=== PATIENT | female | born 1970 | race Caucasian/White ===

== ENCOUNTER 2016-12-07 20:59 | Emergency (ER) | payer BC ==
--- NOTE | 2016-12-07 21:35 | UC ---
Lower Extremity/Ankle HPI - History of Current Complaint Stated Complaint: LEFT FOOT INJURY Time Seen by Provider: 12/07/16 21:28 Hx Obtained From: Patient Hx Last Menstrual Period: 3 weeks ago ?: No Onset/Duration: Sudden Onset - dropped [employer] computer battery supply on the left foot, Lasting Hours - 2, Still Present Severity Initially: Moderate Severity Currently: Moderate Aggravating Factor(s): Standing, Ambulation Alleviating Factor(s): Rest, Elevation, Ice Able to Bear Weight: Yes - Risk Factors Gout Risk Factors: Age Over 40 DVT Risk Factors: Negative Septic Arthritis Risk Factor: Negative - Allergies/Home Medications Allergies/Adverse Reactions: Allergies Allergy/AdvReac Type Severity Reaction Status Date / Time Gluten Meal Allergy See Comment Verified 12/07/16 21:21 Seasonal Allergies Allergy Intermediate Congestion Uncoded 12/07/16 21:21 Home Medications: Home Medications Gabapentin CAP(*) [Neurontin 300 CAP(*)] 600 mg PO TID PRN 12/07/16 [History Confirmed 12/07/16] Levonorgestrel & Eth Estradiol [Madyson-28] 1 tab PO DAILY 12/07/16 [History Confirmed 12/07/16] Omeprazole CAP* [Prilosec CAP* 20 MG] 20 mg PO DAILY 12/07/16 [History Confirmed 12/07/16] Propranolol & Hydrochlorothiaz [Propranolol/Hydrochloroth] 0.5 tab PO DAILY 02/18 [History Confirmed 12/07/16] Vitamin B Complex TAB* [Complex B-100*] 1 tab PO DAILY 12/07/16 [History Confirmed 12/07/16] PMH/Surg Hx/FS Hx/Imm Hx Endocrine History Of: Denies: Diabetes, Thyroid Disease Cardiovascular History Of: Reports: Hypertension Denies: Cardiac Disorders Respiratory History Of: Denies: COPD, Asthma GI/ History Of: Denies: Ulcer - Surgical History Surgical History: None Surgery Procedure, Year, and Place: Adenoids removed at age 4, Ear tubes as a child - Family History Known Family History: Positive: Hypertension Negative: Cardiac Disease, Diabetes - Social History Occupation: Employed Full-time Lives: With Family Substance Use Type: None Smoking Status (MU): Never Smoked Tobacco Have You Smoked in the Last Year: No Review of Systems Respiratory: Cough - with allergies Musculoskeletal: Arthralgia - left foot All Other Systems Reviewed And Are Negative: Yes Physical Exam Triage Information Reviewed: Yes Appearance: Well-Appearing, No Pain Distress - sitting, Well-Nourished Vital Signs Reviewed: Yes Eyes: Positive: Conjunctiva Clear ENT: Positive: Pharynx normal, TMs normal Neck exam: Normal Respiratory Exam: Normal Cardiovascular Exam: Normal Musculoskeletal: Positive: ROM Limited @ - left foot, Other: - swelling with bruising over the dorsal mid foot with tenderness. Neurological Exam: Normal Psychological Exam: Normal Skin Exam: Normal Lower Extremity Course/Dx - Differential Dx/Diagnosis Differential Diagnosis/HQI/PQRI: Contusion, Fracture (Closed), Tendonitis Provider Diagnoses: Contusion foot Discharge - Discharge Plan Condition: Stable Disposition: HOME Patient Education Materials: Contusion in Adults (ED) Additional Instructions: Use the walker shoe for comfort
--- NOTE | 2016-12-07 21:55 | RAD ---
INDICATION: Left foot injury. TECHNIQUE: 3 views of the left foot were obtained. FINDINGS: Soft tissue swelling is noted dorsal to the tarsal and metatarsal bones. The bones are in normal alignment. No fracture is seen. There is mild osteoarthritic change in the first metatarsophalangeal joint and a calcaneal spur present. IMPRESSION: NO EVIDENCE FOR FRACTURE, IF THE PATIENT'S SYMPTOMS PERSIST RECOMMEND FOLLOW-UP IMAGING.
[2016-12-07 21:59] VITALS: BP 197/97
== END 2016-12-07 22:11 | disposition home or self-care (01) ==
LOC: UCCORT 20:59
DX: S90.32XA Contusion of left foot, initial encounter (principal); W20.8XXA Other cause of strike by thrown, projected or falling object, initial encounter; Y93.9 Activity, unspecified; Y92.9 Unspecified place or not applicable; I10 Essential (primary) hypertension
CPT/HCPCS: 99212; G0463

== ENCOUNTER 2018-11-16 15:16 | Inpatient (IN) | payer BC ==
[2018-11-16] MEDS ORDERED: Morphine INJ* 10 MG/ML 1 ML CARPUJECT IV ONE (16:18)
[2018-11-16] MEDS ORDERED: cefTRIAXone(*) 1 GM in NS 0.9% 50 ML* 50 ML IVPB ONE (16:19)
--- NOTE | 2018-11-16 16:19 | ED ---
Back Pain - HPI Summary HPI Summary: This pt is a 47 y/o female, accompanied by spouse, presenting to [facility] referred by Dr. Suarez after MRI today shows osteomyelitis. Pt reports she had laminectomy with microdiscectomy surgery on 08/27/18 done at [facility] ([place], [place]) by Dr. Henson. She states that for 2.5 weeks after surgery she felt great. Pt then began to experience pain in her gluteus area, described as a "tear feeling," and lower back pain. Pt notes she was placed on prednisone for 10 days with relief in mid September 2018 by her surgeon. She states that after she finished prednisone she continued to have pain. Her pain is aggravated when lying flat. Pt began to see Dr. Suarez, manager general, for her pain and had an MRI today. MRI today showed she had osteomyelitis and was told by Dr. Suarez to come to the ED. Denies fever, chills, abd pain, weakness, numbness, and tingling in LE. - History of Current Complaint Chief Complaint: EDBackInjuryPain Stated Complaint: BACK/JOINT PAIN Time Seen by Provider: 11/16/18 16:09 Hx Obtained From: Patient Hx Last Menstrual Period: 3 weeks ago Onset/Duration: Lasting Weeks, Still Present Onset/Duration: Started Weeks Ago, Still Present Timing: Lasting Weeks Back Pain Location: Is Discrete @ - gluteus Severity Currently: Severe Pain Intensity: 9 Pain Scale Used: 0-10 Numeric Aggravating Symptom(s): Other - lying flat Alleviating Symptom(s): Nothing Associated Signs And Symptoms: Negative: Fever, Abdominal Pain - Allergies/Home Medications Allergies/Adverse Reactions: Allergies Allergy/AdvReac Type Severity Reaction Status Date / Time amoxicillin [From Augmentin] Allergy skin thrush Verified 11/10/18 10:10 clavulanic acid Allergy skin thrush Verified 11/10/18 10:10 [From Augmentin] gluten Allergy See Comment Verified 11/10/18 10:10 codeine AdvReac Severe Nausea Verified 11/10/18 10:10 Seasonal Allergies Allergy Intermediate Congestion Uncoded 11/10/18 10:10 Home Medications: Home Medications tiZANidine TAB* [Zanaflex TAB*] 6 mg PO QID 11/16/18 [History Confirmed 11/16/18 ] PMH/Surg Hx/FS Hx/Imm Hx Endocrine/Hematology History: Denies: Hx Diabetes, Hx Thyroid Disease Cardiovascular History: Denies: Hx Hypertension - "WHITE COAT SYNDROME", Hx Pacemaker/ICD Respiratory History: Denies: Hx Asthma, Hx Chronic Obstructive Pulmonary Disease (COPD) GI History: Denies: Hx Ulcer History: Reports: Hx Kidney Stones Denies: Hx Renal Disease Musculoskeletal History: Reports: Hx Back Problems Sensory History: Denies: Hx Hearing Aid Psychiatric History: Denies: Hx Panic Disorder - Cancer History Cancer Type, 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 2018 LAMINECTOMY Infectious Disease History: No Infectious Disease History: Reports: Hx Shingles - 2010 Denies: Hx Hepatitis, Hx Human Immunodeficiency Virus (HIV), Traveled Outside the [place] in Last 30 Days - Family History Known Family History: Positive: Hypertension Negative: Cardiac Disease, Diabetes - Social History Alcohol Use: Occasionally Substance Use Type: Reports: None Smoking Status (MU): Never Smoked Tobacco Have You Smoked in the Last Year: No Review of Systems Negative: Fever, Chills Negative: Abdominal Pain Musculoskeletal: Other - POS: gluteus pain, lower back pain Negative: Weakness, Paresthesia, Numbness All Other Systems Reviewed And Are Negative: Yes Physical Exam - Summary Physical Exam Summary: Appearance: Well-appearing, Obese woman, no acute distress Skin: Warm, dry, no obvious rash Eyes: sclera anicteric, no conjunctival pallor ENT: mucous membranes moist, pharynx appears normal Neck: Supple, nontender Respiratory: Clear to auscultation, no signs of respiratory distress Cardiovascular: Normal S1, S2. No murmurs. Normal distal pulses in tibial and radial bilaterally. Abdomen: Soft, nontender, normal active bowel sounds present Musculoskeletal: Well healed surgical scar in lower back. Good strength in lower extremities. About 4 or 5 beats of clonus on both ankles. Neurological: A&Ox3, awake and alert, mentation is normal, speech is fluent and appropriate Psychiatric: affect is normal, does not appear anxious or depressed Triage Information Reviewed: Yes Vital Signs On Initial Exam: Initial Vitals Temp Pulse Resp BP Pulse Ox 97.7 F 119 20 159/99 98 11/16/18 15:19 11/16/18 15:19 11/16/18 15:19 11/16/18 15:19 11/16/18 15:19 Vital Signs Reviewed: Yes Diagnostics - Vital Signs Vital Signs Temp Pulse Resp BP Pulse Ox 11/16/18 15:19 97.7 F 119 20 159/99 98 - Laboratory Result Diagrams: 11/16/18 16:33 11/16/18 16:33 Lab Statement: Any lab studies that have been ordered have been reviewed, and results considered in the medical decision making process. - Additional Comments Diagnostic Additional Comments: Outpatient Lumbar Spine MRI, as read by radiologist IMPRESSION: 1. Status post laminectomy 2. There is fluid within the intervertebral disc space with enhancement and irregularity of the endplates at L4-L5, consistent with osteomyelitis/discitis. There is an associated 1.3 CM paravertebral abscess along the superior endplate of L5. There is epidural enhancement suggestive of phlegmon without loculated fluid collection to suggest epidural abscess. Dr. Allen has reviewed this report. Re-Evaluation - Re-Evaluation First Eval Re-Evaluation Time: 18:19 Comment: Discussed no available beds at [facility]. Pt is still in pain. Back Pain Course/Dx - Course Assessment/Plan: Pt is a 47 y/o female who presents to the ED referred by Dr. Suarez after MRI today showing osteomyelitis. Pt reports she had laminectomy with microdiscectomy surgery on 08/27/18 done at [facility] ([place], [place]) by Dr. Henson. She states that for 2.5 weeks after surgery she felt great. Pt then began to experience pain in her gluteus area, described as a "tear feeling," and lower back pain. Pt had MRI today ordered by Dr. Suarez, manager general. In the ED course the pt was given IV fluids, morphine, morphine vial, rocephin, vancomycin, oxycodone. Discussed with Dr. Jenkins, neurosurgeon , who recommends transfer. Contacted [facility] to speak with neurosurgeon covering for Dr. Henson. Dr. Howard, neurosurgeon, returned the call and reports they don 't have beds available but would be happy to accept. Transfer center was contacted to make them aware of situation. Discussed pt care with Dr. Parikh, hospitalist, who will come see the pt in the ED. - Diagnoses Provider Diagnoses: Discitis, Spinal abscess, Osteomyelitis of lumbar spine - Provider Notifications Discussed Care Of Patient With: Charles Jenkins Time Discussed With Above Provider: 16:21 Instructed by Provider To: Other - Discussed with Dr. Jenkins, neurosurgeon, who recommends transfer. [16:43] Contacted [facility] to speak with neurosurgeon covering for Dr. Henson. [17:36] Dr. Howard, neurosurgeon, reports they don't have beds available but would be happy to accept. [18:00] Transfer center was contacted. [18:12] Discussed pt care with Dr. Parikh, hospitalist, who will come see the pt in the ED. Discharge - Sign-Out/Discharge Documenting (check all that apply): Patient Departure Patient Received Moderate/Deep Sedation with Procedure: No - Discharge Plan Condition: Stable Disposition: ADMITTED TO [facility] Referrals: Delisa Hernandez MD [Primary Care Provider] - - Billing Disposition and Condition Condition: STABLE Disposition: Admitted to [facility] - Attestation Statements Document Initiated by Ailyn: Yes Documenting Galeibe: Mague Watson Provider For Whom Ailyn is Documenting (Include Credential): Mayur Allen MD Scribe Attestation: Mague Larsen, scribed for Mayur Allen MD on 11/16/18 at 1957. Scribe Documentation Reviewed: Yes Provider Attestation: The documentation as recorded by the Mague stroud accurately reflects the service I personally performed and the decisions made by me, Mayur Allen MD Status of Scribe Document: Viewed
[2018-11-16] MEDS ORDERED: Vancomycin(*) 1,000 MG in NS 0.9% 250 ML* 250 ML IVPB ONE (16:20)
[2018-11-16] MEDS ORDERED: Morphine VIAL* 10 MG/ML 1 ML VIAL ONE ×2 (16:35→21:02)
[2018-11-16] MEDS ORDERED: Vancomycin(*) 2,000 MG in NS 0.9% 500 ML* 500 ML IVPB ONE (16:38)
[2018-11-16 16:50] LABS: ABS Basophils 0 10^3/ul (0-0.2); ABS Eosinophils 0.2 10^3/ul (0-0.6); ABS Monocytes 0.6 10^3/ul (0-0.8); ABS Neutrophils 7.5 10^3/ul (1.5-7.7); ABS Nucleated RBC 0 10^3/ul; Eosinophil % 1.6 %; Hematocrit 30 % (35-47); Hemoglobin 9.7 g/dl (12.0-16.0); Lymphocyte % 19.2 %; Mean Corpuscular HGB Conc 33 g/dl (31-36); Mean Corpuscular Hemoglobin 26 pg (27-31); Mean Corpuscular Volume 79 fL (80-97); Mean Platelet Volume 6.9 fL (7.4-10.4); Nucleated Red Blood Cells % 0; Platelet Count 581 10^3/ul (150-450); Red Cell Distribution Width 16 % (10.5-15); White Blood Count 10.2 10^3/ul (3.5-10.8)
[2018-11-16] MEDS: NS 0.9% 1000 ML** 2,000 ML IV ONE ×2 (16:51→16:52)
[2018-11-16] MEDS: Morphine VIAL* 10 MG/ML 1 ML VIAL IV ONE ×2 (16:51→21:05)
[2018-11-16 17:01] LABS: Albumin/Globulin Ratio 1.1 (1-3); BUN/Creatinine Ratio 16.1 (8-20); C Reactive Protein 43.7 mg/L (<8.01); Calcium 9.2 mg/dL (8.6-10.3); EGFR African American 78.2 (>60); EGFR Non-African American 64.6 (>60); Globulin 3.7 g/dL (2-4); Potassium 4.3 mmol/L (3.5-5.0); Total Bilirubin 0.3 mg/dL (0.2-1.0); Total Protein 7.7 g/dL (6.4-8.9)
[2018-11-16 18:02] LABS: Urine Appearance Cloudy; Urine Bacteria Absent (Absent); Urine Bilirubin Negative (Negative); Urine Blood Negative (Negative); Urine Color Yellow; Urine Glucose Negative (Negative); Urine Ketones Negative (Negative); Urine Nitrite Negative (Negative); Urine Protein 1+(30 mg/dL) (Negative); Urine Red Blood Cell 2+(6-10/hpf) (Absent); Urine Squamous Epithelial Cell Present (Absent); Urine Urobilinogen Negative (Negative); Urine White Blood Cell Trace(0-5/hpf) (Absent)
[2018-11-16] MEDS ORDERED: oxyCODONE TAB* 5 MG TAB PO ONE (18:26)
[2018-11-16] MEDS ORDERED: Acetaminophen TAB* 325 MG PO PRN (19:48)
[2018-11-16] MEDS ORDERED: ALPRAZolam TAB* 0.25 MG PO PRN (19:58)
[2018-11-16] MEDS ORDERED: Vancomycin per Pharmacy* NOTE FOLLOW UP SCH (21:00)
--- NOTE | 2018-11-16 21:54 | PN ---
Hospitalist Progress Note Date of Service: 11/16/18 Patient seen and evaluated with CLARIBEL Cooper. Patient here with back pain. No rectal or urinary incontience, no lower extremity weakness, no saddle anesthesia. On exam: able to raise both legs up without issues. tenderness at the lower back region. Epidural abscess/osteomyelitis post back surgery in August 2018: discussed with patient that Dr. Jenkins has refused to participate in the care, and recommended transfer. Dr. Bullard accepted the patient at [facility] in [place], [place]; however no bed available. Currently patient is refusing transfer, will need the on-call neurosurgeon tomorrow to consult, if he also refuses- patient will have to be transferred. Discussed with patient that refusing to be transfer and have neurosurgery evaluation- she risks not getting the standard of care- possible drainage of abscess/surgical debridement if needed- can lead to weakness of lower extremities- functional disability, paralysis, worsening of infection, leading to blood infection, probable shock and .
[2018-11-16] MEDS: Morphine VIAL* 4 MG/ML VIAL (1 ml vial) IV PRN (23:37)
[2018-11-16] MEDS: tiZANidine TAB* 2 MG PO SCH (23:44)
[2018-11-16] MEDS: Gabapentin CAP(*) 300 MG PO SCH (23:44)
[2018-11-16] MEDS: Heparin VIAL(*) 5000 UNITS/ML VIAL (FIVE THOUSAND) SUBCUT SCH (23:45)
--- NOTE | 2018-11-16 23:48 | HP ---
HISTORY AND PHYSICAL: DATE OF ADMISSION: 11/16/18 PROVIDER: Leah Isaac NP. ATTENDING PHYSICIAN WHILE IN THE HOSPITAL: Dr. Zapien * (dictated by Leah Isaac NP). PRIMARY CARE PROVIDER: Dr. Hernandez. CHIEF COMPLAINT: Lower back pain. HISTORY OF PRESENT ILLNESS: Ms. Pugh is a 47-year-old female with past medical history significant for lower back pain, status post back surgery on , at which time, she reports she had a laminectomy with a microdiscectomy at [facility] by Dr. Henson. She reports that 2-1/2 weeks post surgery, she felt great, she had minimal pain. She denied any complaints. Denied any radiation. Nerve pain had improved that was radiating down her legs. She reports that she started PT in approximately 2 to 3 days. After starting physical therapy, she felt like she had a torn muscle in her back and developed muscle spasms. Since then the patient has had difficulty with muscle spasms and lower back pain that radiates to bilateral hips. She reports that the muscle spasms progressed to the point she followed up with Dr. Henson, who prescribed her Flexeril and hydrocodone for the pain. She then did follow up with Dr. Suarez from pain management, who changed her medication to Zanaflex. She does report that the Zanaflex has been helping her pain. Her last follow up with Dr. Henson in [place] was 10/07/17 and at that time, he prescribed her hydrocodone and Flexeril. The patient reports that the pain has progressively become worse. She followed up with her primary care provider, who ordered an MRI of her back. The MRI was scheduled for today. After the MRI , she was contacted to return to the emergency room due to she was told "a bone infection and abscess" on her spine, so she presented to the emergency room for further evaluation. While in the emergency room, she was seen and evaluated. She had routine lab works drawn. She was started on IV antibiotics with vanco and ceftriaxone. Dr. Jenkins from Neurosurgery was contacted and declined consultation in this patient's case and recommended that the patient be transferred back to [facility] where she had the procedure done. The patient declined transfer to [facility] stating "this facility is more convenient for her" as she was in [place]. [facility] was contacted for transfer and the patient was accepted by Dr. Henson's colleague, Dr. Howard from Neurosurgery, who reports that they have no beds available to accept the patient at this time. The patient has no neuro deficits. She is able to move all 4 extremities with 5/5 strength. Sensation is intact to bilateral lower extremities. Tendon reflexes are intact. She does report feeling warm and chills x30 days. She does report some intermittent nausea. She denies any chest pain, cough, hemoptysis, or shortness of breath. Denies any abdominal pain or diarrhea. She denies any urinary incontinence or bowel incontinence. She denies any saddle anesthesia. Due to the findings of osteomyelitis and discitis on her MRI, we were asked to see and evaluate her for admission. PAST MEDICAL HISTORY: Significant for: 1. Lower back pain. 2. Essential hypertension. 3. Kidney stones. 4. Esophageal reflux. PAST SURGICAL HISTORY: 1. Laminectomy with microdiscectomy on 08/27/18. 2. D and C. 3. Polyp removal in 2014. HOME MEDICATIONS: 1. Vitamin B complex 1 tab p.o. daily. 2. Estradiol 1 tablet p.o. daily. 3. Gabapentin 600 mg p.o. b.i.d. 4. Vitamin D 1000 units p.o. daily. 5. Alprazolam 0.25 mg p.o. 4 times a day p.r.n. 6. Tramadol 50 mg 4 times a day p.r.n. 7. Zanaflex 6 mg p.o. 4 times a day. 8. Propranolol/hydrochlorothiazide 0.5 tablet p.o. daily, 80/25. 9. Omeprazole 20 mg p.o. daily. 10. Ibuprofen 600 mg 4 times a day as needed for pain. FAMILY HISTORY: No reported history of coronary artery disease or diabetes. Father with history of basal cell carcinoma. Mother with history of breast cancer. SOCIAL HISTORY: Denies any tobacco. Does report social alcohol use. Denies any illicit drug use. She is employed at [employer]. Surrogate decision maker in the event she is unable to make her own decisions is her partner, , Andrei. She is a full code. REVIEW OF SYSTEMS: There has been no documented fever or unintended weight loss. She does report chills and feeling warm x30 days at home. She denies any chest pain or edema. Denies any cough, hemoptysis, or shortness of breath. She does report nausea on and off. Denies any diarrhea or abdominal pain. Denies any vomiting. Denies any hematuria, dysuria, focal weakness, or sensory loss. Denies any visual complaints or dysphagia. She does report bilateral hip joint aches. Denies any rashes, lesions, open sores, psychosis, or anxiety. PHYSICAL EXAMINATION GENERAL: At this time, Ms. Pugh is a 47-year-old female. She appears comfortable, resting on the stretcher in the emergency room. She is alert and oriented x3. HEENT: Head is atraumatic, normocephalic. Eyes: EOMs are intact. Sclerae anicteric and not pale. Oral mucosa appeared to be moist. NECK: Supple. LUNGS: Clear to auscultation bilaterally. No wheezes, rales, or rhonchi. CARDIAC: S1, S2. Regular rate and rhythm. No murmurs, rubs, or gallops. ABDOMEN: Soft and nontender. Bowel sounds are present x4. EXTREMITIES: Pedal pulses are +2 bilaterally. Sensation is intact to bilateral lower extremities. Patellar reflexes are intact. : She denies any bowel or urinary incontinence. No saddle anesthesia. NEUROLOGIC: She is awake, alert, and oriented x3. Speech is clear. Hand snow shoveler are equal. Thought process is intact. No gross focal deficits are noted. She denies any numbness or tingling to bilateral feet or lower extremities. She has full range of motion of bilateral lower extremities. She does exhibit some pain with straight leg lift with bilateral lower legs. She does have SI joint tenderness with palpation to bilateral SI joints and bilateral hip joint pain with palpation. C-spine, T-spine, and lumbar spine without tenderness to palpation. She has a well-healed surgical scar noted to her lumbar region. SKIN: Intact. ASSESSMENT AND PLAN: Ms. Pugh is a 47-year-old female with past medical history significant for hypertension, lower back pain, status post laminectomy with microdiscectomy on 08/27/[address] Henson at [facility], who presented to the emergency room with acute findings on MRI of osteomyelitis and possible abscess. The patient will be admitted inpatient for: 1. Lumbar osteomyelitis, discitis. She will be continued on vancomycin and ceftriaxone. I will consult Infectious Disease. The patient was notified that Dr. Jenkins from Neurosurgery has declined participation in her care. The patient was recommended to be transferred to [facility] where she had her procedure done. The patient declined transfer to [facility]. She was advised of the risk of not being transferred and wishes to stay here at [facility] for her treatment. I would recommend that the case be discussed with Dr. Bustos in the morning. The patient was advised that if neurosurgery again decline participation in her care that she again would need to be transferred to [facility] for further management of her osteomyelitis of the lumbar spine. I will add on CRP and ESR to her lab work. 2. Hypertension. She will continue on propranolol/hydrochlorothiazide as previously prescribed. 3. Acid reflux. Continue on omeprazole as previously prescribed. 4. Fluids, electrolytes, nutrition. She can have a regular diet. 5. Code status. She is a full code. 6. Deep vein thrombosis prophylaxis. I will place her on heparin subcu. DISPOSITION: She will be placed inpatient. TIME SPENT: Time spent on this admission approximately 60 minutes; greater than half that time was spent at the bedside, reviewing events leading thus far to her hospitalization, performing my physical exam; the rest of the time was spent implementing my my plan of care and reviewing my plan of care. I have discussed this with my attending, Dr. Zapien, who is in agreement with my plan. LEAH ISAAC, CLARIBEL [id number]/[facility] #: [id number] LISA
[2018-11-17] MEDS: Morphine VIAL* 4 MG/ML VIAL (1 ml vial) IV PRN ×8 (01:30→22:58)
[2018-11-17] MEDS: Vancomycin(*) 1,250 MG in NS 0.9% 250 ML* 250 ML IVPB SCH ×3 (01:52→21:54)
[2018-11-17] MEDS: Heparin VIAL(*) 5000 UNITS/ML VIAL (FIVE THOUSAND) SUBCUT SCH ×3 (06:07→21:55)
[2018-11-17 07:31] LABS: ABS Basophils 0 10^3/ul (0-0.2); ABS Eosinophils 0.3 10^3/ul (0-0.6); ABS Lymphocytes 1.5 10^3/ul (1.0-4.8); ABS Monocytes 0.6 10^3/ul (0-0.8); ABS Neutrophils 5.7 10^3/ul (1.5-7.7); ABS Nucleated RBC 0 10^3/ul; Eosinophil % 3.2 %; Hematocrit 27 % (35-47); Hemoglobin 8.8 g/dl (12.0-16.0); Lymphocyte % 18.5 %; Mean Corpuscular HGB Conc 33 g/dl (31-36); Mean Corpuscular Hemoglobin 26 pg (27-31); Mean Corpuscular Volume 79 fL (80-97); Mean Platelet Volume 6.8 fL (7.4-10.4); Nucleated Red Blood Cells % 0; Platelet Count 474 10^3/ul (150-450); Red Blood Count 3.43 10^6/ul (4.00-5.40); Red Cell Distribution Width 16 % (10.5-15); White Blood Count 8.1 10^3/ul (3.5-10.8)
[2018-11-17 08:00] LABS: BUN/Creatinine Ratio 14.5 (8-20); Calcium 8.8 mg/dL (8.6-10.3); EGFR African American 98.7 (>60); EGFR Non-African American 81.6 (>60)
[2018-11-17] MEDS: Gabapentin CAP(*) 300 MG PO SCH ×2 (09:54→20:35)
[2018-11-17] MEDS: Hydrochlorothiazide TAB* 25 MG PO SCH (09:55)
[2018-11-17] MEDS: Pantoprazole TAB * 40 MG TAB PO SCH (09:56)
[2018-11-17] MEDS: tiZANidine TAB* 2 MG PO SCH ×4 (09:56→20:43)
[2018-11-17] MEDS: Vitamin B Complex TAB PO SCH (09:56)
[2018-11-17] MEDS: Propranolol TAB* 40 MG PO SCH (09:57)
[2018-11-17] MEDS: ETHINYL ESTRADIOL PO SCH (09:58)
[2018-11-17] MEDS: Cholecalciferol TAB* 1000 UNITS PO SCH (09:58)
[2018-11-17] MEDS: LEVONORGESTREL PO SCH (09:58)
--- NOTE | 2018-11-17 15:34 | CONS ---
CONSULTATION REPORT: DATE OF CONSULT: 11/17/18 REQUESTING PROVIDER: Leah Isaac NP. CONSULTING SERVICE: Infectious Disease. REASON FOR CONSULT: Vertebral osteo diskitis. IMPRESSION: 1. Few weeks of worsening low back pain, elevated C-reactive protein, and MRI of the lumbar spine that shows vertebral osteo diskitis at L4-L5, a 1.3 cm paravertebral abscess along the endplate of L5, epidural enhancement without abscess, suggestive of phlegmon. Her lower extremities are neurologically intact. 2. Status post decompressive laminectomy with microdiskectomy of the lumbar spine, 08/27/18. 3. Allergy to AUGMENTIN. RECOMMENDATIONS: Blood cultures were sent. I will talk to Interventional Radiology and see if there is anything that they can aspirate to improve the culture yield. Assuming not, the typical organisms are Staph and Strep and less commonly Gram negatives. She is on vancomycin and ceftriaxone, which I think is reasonable for now as we try to determine a long-term course for her, which will include 6 to 8 weeks of IV antibiotics. Follow her lower extremity neurologic exam closely. At this point, there is no indication for surgery. HISTORY OF PRESENT ILLNESS: This is a 47-year-old woman who had a lumbar laminectomy in August, did well for the first few weeks, and then started to develop low back and bilateral buttock pain. She had a course of prednisone with some improvement. Because of worsening symptoms, she eventually saw Dr. Suarez, who evaluated her. Her symptoms continued to get worse despite some physical therapy and other conservative measures. She had an MRI done yesterday with results as described above. She was directed to the ER. Here, her white count was 10, her platelet count was 581, her CRP 45. She is afebrile here. She has not had fevers at home that she knows of. Her appetite has been off and she has had chills without sweats. She has no prosthetic material present. She does not notice leg weakness and has been walking around at home, just has difficulty getting up from laying down due to pain. No trouble emptying her bladder or maintaining continence of stool. PAST MEDICAL HISTORY: 1. Obesity. 2. Hypertension. 3. Nephrolithiasis. 4. Esophageal reflux. 5. Status post laminectomy and microdiskectomy, lumbar spine on 08/27/18. 6. D and C. MEDICATIONS: 1. Tylenol. 2. Xanax as needed. 3. Cholecalciferol. 4. Gabapentin. 5. Heparin subcutaneous injection. 6. Hydrochlorothiazide. 7. Morphine. 8. Pantoprazole. 9. Ceftriaxone 1 g a day. 10. Tizanidine. 11. Vancomycin 1250 mg every 8 hours. ALLERGIES: 1. AUGMENTIN. 2. CODEINE. FAMILY HISTORY: No recurrent infections. SOCIAL HISTORY: She lives in [place], works for [employer]. Nonsmoker. No injections of drugs. REVIEW OF SYSTEMS: All negative, except as noted above to the 14-point review. PHYSICAL EXAM: Vital Signs: Temperature 37, heart rate 70, respiratory rate 16 , blood pressure 134/80, oxygen saturation 97% on room air. General: She is awake and not in distress. Neurologic: She is oriented x3. Follows all commands. Strength is 5/5 in the quadriceps, tibialis anterior, and gastrocnemius bilaterally. Sensation is intact to light touch in both legs. There is no lower extremity clonus. HEENT: There is no conjunctival hemorrhage. Oropharynx without lesions. Neck: Supple without mass. Heart: Regular rate and rhythm without murmurs, rubs, or gallops. Lungs: Clear to auscultation bilaterally. Abdomen: Soft, nontender, and nondistended. There are bowel sounds present. Skin: There are no rashes or splinter hemorrhages. Musculoskeletal: Her lumbar spine incision is healed. There is slight spine tenderness to palpation. There is bilateral buttock tenderness to palpation. There is no logroll sign in either hip. DIAGNOSTIC STUDIES/LAB DATA: Creatinine 0.7. White blood cell count 8, hemoglobin 8, MCV 79, and platelets 474. Please see impression and recommendations outlined above, which I have discussed with Ann Dow NP. Thanks for asking me to see Ms. Pugh in consultation. [id number]/[facility] #: [id number] LISA
[2018-11-17] MEDS: cefTRIAXone(*) 1 GM in NS 0.9% 50 ML* 50 ML IVPB SCH (16:40)
[2018-11-17] MEDS ORDERED: Vancomycin Trough Check NOTE FOLLOW UP ONE (17:30)
[2018-11-17] MEDS: Morphine VIAL* 10 MG/ML 1 ML VIAL IV PRN ×2 (19:12→20:34)
--- NOTE | 2018-11-17 19:12 | PN ---
Subjective Date of Service: 11/17/18 Interval History: Patient seen and examined. Complaint of low back pain, trouble ambulating. Denies fever or chills. No SOB or chest pain. Objective Active Medications: Acetaminophen (Tylenol Tab*) 650 mg PO Q4H PRN PRN Reason: FEVER/PAIN Alprazolam (Xanax Tab*) 0.25 mg PO QID PRN PRN Reason: ANXIETY Cholecalciferol (Vitamin D Tab*) 1,000 units PO DAILY [facility] Last Admin: 11/17/18 09:58 Dose: 1,000 units Gabapentin (Neurontin Cap(*)) 600 mg PO BID [facility] Last Admin: 11/17/18 09:54 Dose: 600 mg Heparin Sodium (Porcine) (Heparin Vial(*)) 5,000 units SUBCUT Q8HR [facility] Last Admin: 11/17/18 14:23 Dose: 5,000 units Hydrochlorothiazide (Hydrodiuril Tab*) 12.5 mg PO DAILY [facility] Last Admin: 11/17/18 09:55 Dose: 12.5 mg Ceftriaxone Sodium 1 gm/ (Sodium Chloride) 50 mls @ 200 mls/hr IVPB Q24H [facility] Last Admin: 11/17/18 16:40 Dose: 200 mls/hr Vancomycin HCl 1,250 mg/ (Sodium Chloride) 250 mls @ 83.333 mls/hr IVPB 0600, 1400,2200 [facility] Morphine Sulfate (Morphine Vial*) 4 mg IV Q1H PRN PRN Reason: PAIN Nft: Levonorgestrel- Ethin Estradiol [ Madyson-28 Tablet] 1 Tab 1 tab PO DAILY [facility] Last Admin: 11/17/18 09:58 Dose: Not Given Oxycodone/Acetaminophen (Percocet 5/325 Tab*) 1 tab PO Q4H PRN PRN Reason: Pain Pantoprazole Sodium (Protonix Tab*) 40 mg PO DAILY [facility] Last Admin: 11/17/18 09:56 Dose: 40 mg Pharmacy Consult (Vancomycin Per Pharmacy*) 1 note FOLLOW UP .VANC PER PHARMACY [facility] Pharmacy Profile Note (Vancomycin Trough Check) 1 note FOLLOW UP 0600 ONE Stop: 11/18/18 06:01 Propranolol HCl (Inderal Tab*) 40 mg PO DAILY [facility] Last Admin: 11/17/18 09:57 Dose: 40 mg Tizanidine HCl (Zanaflex Tab*) 6 mg PO QID [facility] Last Admin: 11/17/18 16:40 Dose: 6 mg Vitamin B Complex/Vitamin E (B Complex-50*) 1 tab PO DAILY [facility] Last Admin: 11/17/18 09:56 Dose: 1 tab Vital Signs - 8 hr 11/17/18 11/17/18 11/17/18 11:17 11:22 12:05 Temperature 99.0 F Pulse Rate 78 77 Respiratory 16 18 Rate Blood Pressure 134/80 (mmHg) O2 Sat by Pulse 96 97 Oximetry 11/17/18 11/17/18 11/17/18 14:23 15:42 16:38 Temperature 99.2 F Pulse Rate 80 Respiratory 18 18 18 Rate Blood Pressure 129/59 (mmHg) O2 Sat by Pulse 98 Oximetry Oxygen Devices in Use Now: None Appearance: alert, mild anxiety, tearful Eyes: No Scleral Icterus, PERRLA Ears/Nose/Mouth/Throat: NL Teeth, Lips, Gums, Mucous Membranes Moist Neck: NL Appearance and Movements; NL JVP, Trachea Midline Respiratory: Symmetrical Chest Expansion and Respiratory Effort, Clear to Auscultation Cardiovascular: NL Sounds; No Murmurs; No JVD, RRR Abdominal: NL Sounds; No Tenderness; No Distention Extremities: No Clubbing, Cyanosis Skin: No Rash or Ulcers, - - lumbar wound closed Neurological: Alert and Oriented x 3, NL Sensation, NL Gait Nutrition: Taking PO's Result Diagrams: 11/17/18 07:12 11/17/18 07:12 Microbiology and Other Data: Microbiology 11/16/18 16:59 Aerobic Blood Culture - Preliminary Blood Venous No Growth Day 1 11/16/18 16:33 Aerobic Blood Culture - Preliminary Blood Venous No Growth Day 1 Anaerobic Blood Culture - Preliminary No Growth Day 1 Assess/Plan/Problems-Billing Assessment: - Patient Problems (1) Lumbar discitis Code(s): M46.46 - DISCITIS, UNSPECIFIED, LUMBAR REGION SNOMED Code(s): 358523271 Comment: - NS declines to follow the patient as she had surgery at [place] - ID following, continue vancomycin and ceftriaxone, per Dr. Woodruff, no indication for surgery - May be able to go to IR for drainage of abscess and culture - Will need PICC line when blood cx negative (2) Hypertension Code(s): I10 - ESSENTIAL (PRIMARY) HYPERTENSION SNOMED Code(s): 33949045 Comment: - stable on HCTZ and propranolol (3) GERD (gastroesophageal reflux disease) Code(s): K21.9 - GASTRO-ESOPHAGEAL REFLUX DISEASE WITHOUT ESOPHAGITIS SNOMED Code(s): 407383605 Comment: - continue PPI (4) DVT prophylaxis Code(s): [id number] - SNOMED Code(s): 687948485 Comment: - HSQ (5) Full code status Code(s): Z78.9 - OTHER SPECIFIED HEALTH STATUS SNOMED Code(s): 784841239 Status and Disposition: Inpatient. Dispo TBD
[2018-11-17] MEDS: oxyCODONE/Acetamin 5/325 MG* TAB PO PRN (21:50)
[2018-11-18] MEDS: Morphine VIAL* 4 MG/ML VIAL (1 ml vial) IV PRN ×5 (02:14→23:16)
[2018-11-18] MEDS: oxyCODONE/Acetamin 5/325 MG* TAB PO PRN ×2 (04:29→12:06)
[2018-11-18] MEDS ORDERED: Vancomycin Trough Check NOTE FOLLOW UP ONE (06:00)
[2018-11-18] MEDS: Heparin VIAL(*) 5000 UNITS/ML VIAL (FIVE THOUSAND) SUBCUT SCH ×3 (06:31→21:47)
[2018-11-18] MEDS: Vancomycin(*) 1,250 MG in NS 0.9% 250 ML* 250 ML IVPB SCH ×3 (06:55→20:18)
--- NOTE | 2018-11-18 09:07 | PN ---
Progress Note - Progress Note Date of Service: 11/18/18 SOAP: Subjective: CC: spine infection HPI: 47 year old woman with L spine decompression in August, subsequent worsening back and bilateral buttock pain. MRI shows paraspinal abscess, and verterbral osteodiskitis at L4/L5 with epidural phlegmon. No leg weakness. Pain is the same today. Appetite is good. Trouble sleeping. Objective: Vital Signs Temp 36.7 C 11/18/18 07:38 Pulse 80 11/18/18 07:38 Resp 16 11/18/18 07:38 BP 164/90 11/18/18 07:38 Pulse Ox 100 11/18/18 07:38 Intake & Output 11/17/18 11/18/18 11/18/18 18:59 06:59 18:59 Intake Total 1460 1490 Output Total 0 Balance 1460 1490 Intake: IV Fluids 30 NS (0.9%) 30 IVPB 275 250 Vanco 275 250 Oral 1155 1240 Output: Urine 0 Other: Estimated Void Medium Medium # Bowel Movements 0 # Voids 3 3 Gen:awake, no distress HEENT: no thrush Heart:RRR no murmur Lungs:CTA BL Abd:+BS NTND soft Skin: no rash MSK: L spine incision healed, no erythema, slight spine tenderness, BL buttock tenderness Neuro: sensation intact to light tough both feet, strength 5/5 quad/TA/gastroc BL, no LE clonus BL Laboratory Results - last 24 hr 11/17/18 11/18/18 17:15 05:36 Vancomycin Trough 15.4 11.9 Microbiology 11/16/18 17:53 Urine Urine Culture - Final No Growth (<1,000 CFU/mL) 11/16/18 16:59 Blood Venous Aerobic Blood Culture - Preliminary No Growth Day 1 11/16/18 16:33 Blood Venous Aerobic Blood Culture - Preliminary No Growth Day 1 11/16/18 16:33 Blood Venous Anaerobic Blood Culture - Preliminary No Growth Day 1 Assessment: 1. L4/L5 verterbal osteodiskitis with epidural phlegmon and paraspinal abscess; neuro intact 2. elevated CRP due to #1 3. morbid obesity 4. augmentin allergy, tolerating CTX Plan: 1. continue vancomycin and ceftriaxone, I discussed case with Dr Gutierrez who will review films to see if collection is accessible for culture as BC are negative. 2. PICC ordered, 6-8 weeks IV abx w weekly lab testing 3. she will notify us if leg weakness or worsening pain 4. scheduled ibuprofen (ordered)
[2018-11-18] MEDS: Ibuprofen TAB* 600 MG PO SCH ×2 (09:18→17:11)
[2018-11-18] MEDS: Hydrochlorothiazide TAB* 25 MG PO SCH (09:19)
[2018-11-18] MEDS: Gabapentin CAP(*) 300 MG PO SCH ×2 (09:20→21:55)
[2018-11-18] MEDS: Pantoprazole TAB * 40 MG TAB PO SCH (09:23)
[2018-11-18] MEDS: Propranolol TAB* 40 MG PO SCH (09:23)
[2018-11-18] MEDS: tiZANidine TAB* 2 MG PO SCH ×4 (09:24→21:54)
[2018-11-18] MEDS: Cholecalciferol TAB* 1000 UNITS PO SCH (09:25)
[2018-11-18] MEDS: LEVONORGESTREL PO SCH (09:25)
[2018-11-18] MEDS: ETHINYL ESTRADIOL PO SCH (09:25)
[2018-11-18] MEDS: Vitamin B Complex TAB PO SCH (12:05)
[2018-11-18] MEDS: cefTRIAXone(*) 1 GM in NS 0.9% 50 ML* 50 ML IVPB SCH (17:14)
--- NOTE | 2018-11-18 17:14 | PN ---
Subjective Date of Service: 11/18/18 Interval History: Patient seen and examined. states she still has pain radiating into hips with ambulation. Denies fevers or chills. PICC inserted today. Objective Active Medications: Acetaminophen (Tylenol Tab*) 650 mg PO Q4H PRN PRN Reason: FEVER/PAIN Alprazolam (Xanax Tab*) 0.25 mg PO QID PRN PRN Reason: ANXIETY Cholecalciferol (Vitamin D Tab*) 1,000 units PO DAILY [facility] Last Admin: 11/18/18 09:25 Dose: 1,000 units Gabapentin (Neurontin Cap(*)) 600 mg PO BID [facility] Last Admin: 11/18/18 09:20 Dose: 600 mg Heparin Sodium (Porcine) (Heparin Vial(*)) 5,000 units SUBCUT Q8HR [facility] Last Admin: 11/18/18 14:45 Dose: 5,000 units Heparin Sodium (Porcine) (Heparin Flush Picc/Ml/Cvc(*)) 1 - 3 ml FLUSH 0600, 1800 [facility]; Protocol Hydrochlorothiazide (Hydrodiuril Tab*) 12.5 mg PO DAILY [facility] Last Admin: 11/18/18 09:19 Dose: 12.5 mg Ceftriaxone Sodium 1 gm/ (Sodium Chloride) 50 mls @ 200 mls/hr IVPB Q24H [facility] Last Admin: 11/17/18 16:40 Dose: 200 mls/hr Vancomycin HCl 1,250 mg/ (Sodium Chloride) 250 mls @ 83.333 mls/hr IVPB Q8H [facility] Ibuprofen (Motrin Tab*) 600 mg PO Q8H [facility] Last Admin: 11/18/18 09:18 Dose: 600 mg Morphine Sulfate (Morphine Vial*) 4 mg IV Q1H PRN PRN Reason: PAIN Last Admin: 11/18/18 16:02 Dose: 4 mg Nft: Levonorgestrel- Ethin Estradiol [ [place]-28 Tablet] 1 Tab 1 tab PO DAILY [facility] Last Admin: 11/18/18 09:25 Dose: Not Given Oxycodone/Acetaminophen (Percocet 5/325 Tab*) 1 tab PO Q4H PRN PRN Reason: Pain Last Admin: 11/18/18 12:06 Dose: 1 tab Pantoprazole Sodium (Protonix Tab*) 40 mg PO DAILY [facility] Last Admin: 11/18/18 09:23 Dose: 40 mg Pharmacy Consult (Vancomycin Per Pharmacy*) 1 note FOLLOW UP .VANC PER PHARMACY [facility] Pharmacy Profile Note (Vancomycin Trough Check) 1 note FOLLOW UP 1130 ONE Stop: 11/19/18 11:31 Propranolol HCl (Inderal Tab*) 40 mg PO DAILY [facility] Last Admin: 11/18/18 09:23 Dose: 40 mg Tizanidine HCl (Zanaflex Tab*) 6 mg PO QID [facility] Last Admin: 11/18/18 14:04 Dose: 6 mg Vitamin B Complex/Vitamin E (B Complex-50*) 1 tab PO DAILY [facility] Last Admin: 11/18/18 12:05 Dose: Not Given Vital Signs - 8 hr 11/18/18 11/18/18 11/18/18 09:20 12:06 12:24 Respiratory 18 18 18 Rate 11/18/18 16:02 Respiratory 18 Rate Oxygen Devices in Use Now: None Appearance: alert, NAD Ears/Nose/Mouth/Throat: NL Teeth, Lips, Gums, Mucous Membranes Moist Neck: NL Appearance and Movements; NL JVP, Trachea Midline Respiratory: Symmetrical Chest Expansion and Respiratory Effort, Clear to Auscultation Cardiovascular: NL Sounds; No Murmurs; No JVD, No Edema Abdominal: NL Sounds; No Tenderness; No Distention Extremities: No Edema, No Clubbing, Cyanosis Skin: No Rash or Ulcers Neurological: Alert and Oriented x 3, NL Sensation, NL Muscle Strength and Tone Nutrition: Taking PO's Result Diagrams: 11/17/18 07:12 11/17/18 07:12 Microbiology and Other Data: Microbiology 11/16/18 16:59 Aerobic Blood Culture - Preliminary Blood Venous No Growth Day 1 11/16/18 16:33 Aerobic Blood Culture - Preliminary Blood Venous No Growth Day 1 Anaerobic Blood Culture - Preliminary No Growth Day 1 Assess/Plan/Problems-Billing Assessment: This is a 47 year old female with recent hx of lumbar decompression at [facility] in Aug 2018 that presents with intractable lumbar pain, found to have lumbar diskitis. - Patient Problems (1) Lumbar discitis Code(s): M46.46 - DISCITIS, UNSPECIFIED, LUMBAR REGION SNOMED Code(s): 208283686 Comment: - ID following, continue vancomycin and ceftriaxone, per Dr. Woodruff, no indication for surgery - May be able to go to IR for drainage of abscess and culture - Blood cx negative - Discussed again with NS today, Dr. Bustos will see the patient if needed since Dr. Woodruff is following closely and patient declines transfer to [place]. Will await IR results and contact Dr. Bustos if needed (2) Hypertension Code(s): I10 - ESSENTIAL (PRIMARY) HYPERTENSION SNOMED Code(s): 47968899 Comment: - stable on HCTZ and propranolol (3) GERD (gastroesophageal reflux disease) Code(s): K21.9 - GASTRO-ESOPHAGEAL REFLUX DISEASE WITHOUT ESOPHAGITIS SNOMED Code(s): 268691198 Comment: - continue PPI (4) DVT prophylaxis Code(s): [id number] - SNOMED Code(s): 861189915 Comment: - HSQ (5) Full code status Code(s): Z78.9 - OTHER SPECIFIED HEALTH STATUS SNOMED Code(s): 321149933 Status and Disposition: Inpatient. Dispo TBD
[2018-11-18] MEDS ORDERED: Ondansetron INJ* 2 MG/ML VIAL IV PRN (23:07)
[2018-11-19] MEDS: Ibuprofen TAB* 600 MG PO SCH ×3 (00:40→16:59)
[2018-11-19] MEDS: Vancomycin(*) 1,250 MG in NS 0.9% 250 ML* 250 ML IVPB SCH ×3 (03:30→21:41)
[2018-11-19] MEDS: Morphine VIAL* 4 MG/ML VIAL (1 ml vial) IV PRN ×8 (03:35→23:48)
[2018-11-19] MEDS: tiZANidine TAB* 2 MG PO SCH ×4 (03:38→21:40)
[2018-11-19] MEDS: Heparin VIAL(*) 5000 UNITS/ML VIAL (FIVE THOUSAND) SUBCUT SCH (06:25)
[2018-11-19] MEDS: Hydrochlorothiazide TAB* 25 MG PO SCH (09:12)
[2018-11-19] MEDS: Gabapentin CAP(*) 300 MG PO SCH ×2 (09:15→21:40)
[2018-11-19] MEDS: Cholecalciferol TAB* 1000 UNITS PO SCH (09:16)
[2018-11-19] MEDS: ETHINYL ESTRADIOL PO SCH (10:03)
[2018-11-19] MEDS: LEVONORGESTREL PO SCH (10:03)
[2018-11-19] MEDS: CMCS: Omeprazole CAP (NF) 20 MG CAP.DR PO SCH (10:03)
[2018-11-19] MEDS: Vitamin B Complex TAB PO SCH (10:04)
[2018-11-19] MEDS: Propranolol TAB* 40 MG PO SCH (10:04)
[2018-11-19] MEDS ORDERED: Vancomycin Trough Check NOTE FOLLOW UP ONE (11:30)
--- NOTE | 2018-11-19 11:35 | PN ---
Progress Note - Progress Note Date of Service: 11/19/18 SOAP: Subjective: CC: spine infection HPI: 47 year old woman with L spine decompression in August, subsequent worsening back and bilateral buttock pain. MRI shows paraspinal abscess, and verterbral osteodiskitis at L4/L5 with epidural phlegmon. No leg weakness. Pain more tolerable today for the first time, more comfortable up to the bathroom. No fever, rash, or diarrhea. Objective: Vital Signs Temp 36.6 C 11/19/18 11:15 Pulse 73 11/19/18 11:15 Resp 16 11/19/18 11:15 BP 111/78 11/19/18 11:15 Pulse Ox 98 11/19/18 08:00 Intake & Output 11/18/18 11/19/18 11/19/18 18:59 06:59 18:59 Intake Total 120 940 Output Total 0 0 Balance 120 940 Weight 275 lb Intake: IVPB 500 Vanco 500 Oral 120 440 Output: Urine 0 0 Other: Estimated Void Medium Medium Date of Last Bowel 11/18/2018 Movement # Bowel Movements 1 Estimated Stool Amount Medium # Voids 3 1 Gen:awake, no distress HEENT: no thrush Heart:RRR no murmur Lungs:CTA BL Abd:+BS NTND soft Skin: no rash MSK: L spine incision healed, no spine tenderness, BL buttock, SI joint tenderness Neuro: sensation intact to light tough both feet, strength 5/5 quad/TA/gastroc BL, no LE clonus BL Laboratory Results - last 24 hr 11/19/18 06:30 C-Reactive Protein 98.59 H Assessment: 1. L4/L5 verterbal osteodiskitis with epidural phlegmon and paraspinal abscess; neuro intact 2. elevated CRP due to #1 3. morbid obesity 4. augmentin allergy, tolerating CTX Plan: 1. continue vancomycin and ceftriaxone, CT guided aspiration today 2. PICC ordered, 6-8 weeks IV abx w weekly lab testing, likely daptomycin 1000 mg iv daily and ceftriaxone 2 gm IV daily 3. she will notify us if leg weakness or worsening pain 4. scheduled ibuprofen (ordered)
[2018-11-19] MEDS ORDERED: fentaNYL* 50 MCG/ML 2 ML VIAL (100 MCG VIAL) ONE (11:43)
[2018-11-19] MEDS ORDERED: Iohexol 300* (CONTRAST) 10 ML SDV IV ONE (12:37)
[2018-11-19] MEDS: cefTRIAXone(*) 1 GM in NS 0.9% 50 ML* 50 ML IVPB SCH (17:30)
--- NOTE | 2018-11-19 18:58 | PN ---
Subjective Date of Service: 11/19/18 Interval History: Patient seen and examined. Discussed aspiration today with lack of yield. Patient states she feels well, still having pain into the hips with ambulation but she is feeling better. Denies fever or chills. Objective Active Medications: Acetaminophen (Tylenol Tab*) 650 mg PO Q4H PRN PRN Reason: FEVER/PAIN Alprazolam (Xanax Tab*) 0.25 mg PO QID PRN PRN Reason: ANXIETY Cholecalciferol (Vitamin D Tab*) 1,000 units PO DAILY [facility] Last Admin: 11/19/18 09:16 Dose: 1,000 units Gabapentin (Neurontin Cap(*)) 600 mg PO BID [facility] Last Admin: 11/19/18 09:15 Dose: 600 mg Heparin Sodium (Porcine) (Heparin Flush Picc/Ml/Cvc(*)) 1 - 3 ml FLUSH 0600, 1800 [facility]; Protocol Last Admin: 11/19/18 06:25 Dose: 1 ml Hydrochlorothiazide (Hydrodiuril Tab*) 12.5 mg PO DAILY [facility] Last Admin: 11/19/18 09:12 Dose: 12.5 mg Ceftriaxone Sodium 1 gm/ (Sodium Chloride) 50 mls @ 200 mls/hr IVPB Q24H [facility] Last Admin: 11/19/18 17:30 Dose: 200 mls/hr Vancomycin HCl 1,250 mg/ (Sodium Chloride) 250 mls @ 83.333 mls/hr IVPB Q8H [facility] Last Admin: 11/19/18 14:17 Dose: 83.333 mls/hr Daptomycin 1,000 mg/ Sodium (Chloride) 50 mls @ 100 mls/hr IVPB ONCE ONE; Protocol Stop: 11/20/18 09:29 Ibuprofen (Motrin Tab*) 600 mg PO Q8H [facility] Last Admin: 11/19/18 16:59 Dose: 600 mg Morphine Sulfate (Morphine Vial*) 4 mg IV Q1H PRN PRN Reason: PAIN Last Admin: 11/19/18 17:29 Dose: 4 mg Nft: Levonorgestrel- Ethin Estradiol [ Madyson-28 Tablet] 1 Tab 1 tab PO DAILY [facility] Last Admin: 11/19/18 10:03 Dose: Not Given Omeprazole (Prilosec Cap*) 20 mg PO DAILY [facility] Last Admin: 11/19/18 10:03 Dose: 20 mg Ondansetron HCl (Zofran Inj*) 4 mg IV Q6H PRN PRN Reason: NAUSEA Last Admin: 11/18/18 23:16 Dose: 4 mg Oxycodone/Acetaminophen (Percocet 5/325 Tab*) 1 tab PO Q4H PRN PRN Reason: Pain Last Admin: 11/18/18 12:06 Dose: 1 tab Pharmacy Consult (Vancomycin Per Pharmacy*) 1 note FOLLOW UP .VANC PER PHARMACY [facility] Propranolol HCl (Inderal Tab*) 40 mg PO DAILY [facility] Last Admin: 11/19/18 10:04 Dose: 40 mg Tizanidine HCl (Zanaflex Tab*) 6 mg PO Q6H [facility] Last Admin: 11/19/18 15:36 Dose: 6 mg Vitamin B Complex/Vitamin E (B Complex-50*) 1 tab PO DAILY [facility] Last Admin: 11/19/18 10:04 Dose: 1 tab Vital Signs - 8 hr 11/19/18 11/19/18 11/19/18 11:15 13:34 13:36 Temperature 97.9 F Pulse Rate 73 Respiratory 16 18 18 Rate Blood Pressure 111/78 (mmHg) O2 Sat by Pulse Oximetry 11/19/18 11/19/18 11/19/18 15:33 15:44 17:29 Temperature 98.4 F Pulse Rate 71 Respiratory 18 18 18 Rate Blood Pressure 112/81 (mmHg) O2 Sat by Pulse 99 Oximetry Oxygen Devices in Use Now: None Appearance: alert, NAD Eyes: No Scleral Icterus, PERRLA Ears/Nose/Mouth/Throat: NL Teeth, Lips, Gums, Mucous Membranes Moist Neck: NL Appearance and Movements; NL JVP, Trachea Midline Respiratory: Symmetrical Chest Expansion and Respiratory Effort, Clear to Auscultation Cardiovascular: NL Sounds; No Murmurs; No JVD, RRR, No Edema Abdominal: NL Sounds; No Tenderness; No Distention Extremities: No Edema, No Clubbing, Cyanosis Skin: No Rash or Ulcers Neurological: Alert and Oriented x 3, NL Sensation, NL Muscle Strength and Tone Nutrition: Taking PO's Result Diagrams: 11/17/18 07:12 11/17/18 07:12 Microbiology and Other Data: Microbiology 11/16/18 16:59 Aerobic Blood Culture - Preliminary Blood Venous No Growth Day 1 11/16/18 16:33 Aerobic Blood Culture - Preliminary Blood Venous No Growth Day 1 Anaerobic Blood Culture - Preliminary No Growth Day 1 Assess/Plan/Problems-Billing Assessment: This is a 47 year old female with recent hx of lumbar decompression at [facility] in Aug 2018 that presents with intractable lumbar pain, found to have lumbar diskitis. - Patient Problems (1) Lumbar discitis Code(s): M46.46 - DISCITIS, UNSPECIFIED, LUMBAR REGION SNOMED Code(s): 791448977 Comment: - ID following, changing to daptomycin for discharge as per Dr. Woodruff, PICC line inserted - Unable to drain abscess/phlegmon - Blood cx negative (2) Hypertension Code(s): I10 - ESSENTIAL (PRIMARY) HYPERTENSION SNOMED Code(s): 14112797 Comment: - stable on HCTZ and propranolol (3) GERD (gastroesophageal reflux disease) Code(s): K21.9 - GASTRO-ESOPHAGEAL REFLUX DISEASE WITHOUT ESOPHAGITIS SNOMED Code(s): 078613121 Comment: - continue PPI (4) DVT prophylaxis Code(s): [id number] - SNOMED Code(s): 282366337 Comment: - HSQ (5) Full code status Code(s): Z78.9 - OTHER SPECIFIED HEALTH STATUS SNOMED Code(s): 650296596 Status and Disposition: Inpatient. Discharge tomorrow after dapto infusion.
[2018-11-19] MEDS: oxyCODONE/Acetamin 5/325 MG* TAB PO PRN (23:49)
[2018-11-20] MEDS: Ibuprofen TAB* 600 MG PO SCH ×2 (01:40→10:01)
[2018-11-20] MEDS: tiZANidine TAB* 2 MG PO SCH ×2 (04:50→10:02)
[2018-11-20] MEDS: oxyCODONE/Acetamin 5/325 MG* TAB PO PRN ×2 (04:51→10:11)
[2018-11-20] MEDS: Morphine VIAL* 4 MG/ML VIAL (1 ml vial) IV PRN ×2 (05:05→10:12)
[2018-11-20] MEDS: Vancomycin(*) 1,250 MG in NS 0.9% 250 ML* 250 ML IVPB SCH ×2 (05:06→12:51)
[2018-11-20] MEDS ORDERED: DAPTOMYCIN IVPB ONE ×2 (09:00)
[2018-11-20 09:50] VITALS: BP 102/44
[2018-11-20] MEDS: ETHINYL ESTRADIOL PO SCH (09:59)
[2018-11-20] MEDS: LEVONORGESTREL PO SCH (09:59)
[2018-11-20] MEDS: Propranolol TAB* 40 MG PO SCH (10:01)
[2018-11-20] MEDS: Hydrochlorothiazide TAB* 25 MG PO SCH (10:01)
[2018-11-20] MEDS: Cholecalciferol TAB* 1000 UNITS PO SCH (10:01)
[2018-11-20] MEDS: CMCS: Omeprazole CAP (NF) 20 MG CAP.DR PO SCH (10:02)
[2018-11-20] MEDS: Gabapentin CAP(*) 300 MG PO SCH (10:02)
[2018-11-20] MEDS: Vitamin B Complex TAB PO SCH ×2 (10:03→10:24)
[2018-11-20] MEDS ORDERED: oxyCODONE/Acetamin 5/325 MG* TAB PO PRN (11:37)
[2018-11-20] MEDS ORDERED: fentaNYL PATCH 25 MCG/HR TRANSDERM SCH (12:00)
--- NOTE | 2018-11-20 15:35 | DS ---
AMENDED REPORT NOW INCLUDES COSIGNER DESIGNATION CC: Dr. Hernandez; Dr. Woodruff, Infectious Disease; Dr. Osvaldo Gutierrez, Interventional Radiology * DISCHARGE SUMMARY: DATE OF ADMISSION: 11/16/18 DATE OF DISCHARGE: 11/20/18 PRIMARY CARE PROVIDER: Dr. Hernandez. ATTENDING FOR TODAY: Dr. Elmore.* (DICTATED BY MARINA CARDENAS, CLARIBEL) HOSPITAL COURSE: This is a 47-year-old female patient with a recent history of lumbar decompression. Patient had procedure back in August for laminectomy and microdiskectomy with Dr. Henson. Approximately 2-1/2 weeks after surgery, she was feeling well and had no complaints and then she started to get some pain into the lumbar region, the hips, and running down the legs. Patient states that she had gone to see her neurosurgeon multiple times and following up with her primary care provider, she was given pain medication and Zanaflex; however, patient's pain began getting worse. She followed up again with her primary, who ordered an MRI. MRI showed infection and abscess in the lower spine. Patient was evaluated in the emergency department. Initially, we recommended that the patient be transferred to [place] as this is where her surgery took place. Patient declined transfer and wanted more conservative treatment in the form of antibiotics. Patient was seen by Dr. Woodruff from infectious disease, who scheduled the patient for IV antibiotics. She received vancomycin and ceftriaxone. She did go to interventional radiology for needle biopsy; however, the biopsy did not yield a culture. It was noted that the abscess is likely a phlegmon and was not able to be aspirated. Patient continued with her antibiotic treatment. She was changed to daptomycin this morning and will continue ceftriaxone. She has a PICC that has been inserted. Plans for outpatient infusion have been made for the patient with Case Management. Patient will be scheduled for first appointment 11/21/18, at 8:15 a.m. and 11/22/18, at 12:30 p.m. at [facility]. After her initial infusion, she will be followed through [facility] in [place], who will manage antibiotic infusions thereafter. Patient did have a significant amount of pain during this admission. She was managed with IV morphine and Percocet. We discussed pain management extensively. She will be discharged on a fentanyl patch with 3 days of Percocet. She will need to follow up with her primary care provider, Dr. Woodruff, or her neurosurgeon for additional medications beyond what is being prescribed for her at discharge. On the day of discharge, patient denies any fever, fatigue, or chills. No headache. No shortness of breath. No nausea, no vomiting. No urinary complaints. She does have chronic low back pain, which has improved, sometimes rated at 10/10; she is currently a 5/10 with pain radiating into the hips. Otherwise, no further complaints. PHYSICAL EXAMINATION: Patient is awake, well appearing, in no acute distress. Vital signs are blood pressure 102/44, heart rate 69, respiratory rate 16, O2 saturation 98% on room air with temperature of 98.1. HEENT: Patient is atraumatic, normocephalic. PERRLA with nonicteric sclerae. Oral mucosa is moist. Tongue is midline. Neck is supple, nontender. No JVD noted. No carotid bruits auscultated. Cardiovascular: S1, S2 present. No murmurs, gallops, or rubs noted. Rate and rhythm are regular. Lungs are clear bilaterally to auscultation with no adventitious breath sounds. Abdomen is soft , nontender, nondistended, moderately obese. Positive bowel sounds in all 4 quadrants. is deferred. Musculoskeletal: There is no clubbing, no cyanosis , and no edema. She has full range of motion. Gross motor and sensation are intact. She has a steady gait. Neurologic: Grossly intact with no focal deficits. Psychiatric: Cooperative and appropriate. DIAGNOSTIC STUDIES/LAB DATA: Laboratories: WBCs 8.1, RBCs 3.43, hemoglobin 8.8 , hematocrit 27, platelets 474. Sodium 134, potassium 4.0, chloride 104, CO2 of 22, BUN 11, creatinine 0.76, GFR 81.6, glucose from 88 to 122, calcium 8.8. CRP is 98.59. Urinalysis is negative for any acute infective process. Imaging: Lumbar spine CT dated 11/19/18, CT imaging of the lumbar spine before and after IV contrast demonstrates interval improvement and reduction in size of the fluid collection relative to 11/16/18 MRI of the lumbar spine. Because of this interval imaging improvement as well as her clinical improvement, the CT -guided aspiration was suspended. PLAN: Patient will continue medical therapy and antibiotic therapy, which has demonstrated improvement since 11/16/18. Secondly, if the patient worsens clinically, CT-guided needle aspiration of the L4-L5 disk or neighboring area can be rescheduled. DISCHARGE DIAGNOSES: 1. Recent lumbar diskectomy with lumbar diskitis and abscess. 2. History of hypertension. 3. History of anxiety. 4. History of gastroesophageal reflux disease. DISCHARGE MEDICATIONS: Include: 1. Levocetirizine dihydrochloride 5 mg p.o. daily. 2. Vitamin B 1 tab p.o. daily. 3. [place] 28 tablet 1 tab p.o. daily. 4. Gabapentin 600 mg p.o. b.i.d. 5. Vitamin D 1000 units p.o. daily. 6. Alprazolam 0.25 mg 4 times a day as needed. 7. Fentanyl patch 25 mcg transdermal q.72 hours. 8. Oxycodone with acetaminophen 5 mg/325 mg 1 tab p.o. q.6 hours as needed. 9. Omeprazole 20 mg p.o. daily. 10. Propranolol with hydrochlorothiazide 80/25 half a tab p.o. daily. 11. Tizanidine 6 mg p.o. 4 times a day. 12. Heparin flush of her PICC line, 1 to 3 mL flush daily with IV infusions. 13. IV infusions also include daptomycin 1000 mg daily and ceftriaxone 1 g daily. DISPOSITION: Patient will be discharged to home in stable condition. Patient states her understanding of her discharge instructions and medications. FOLLOWUPS: Patient was instructed to follow up with Dr. Hernandez, Dr. Woodruff, her neurosurgeon in [place]. Patient may also follow up with Dr. Gutierrez if Dr. Woodruff feels that the patient does require further aspiration of her abscess. DISCHARGE CONDITION: Patient was discharged to home in stable condition. TIME SPENT: Approximately 45 minutes developing discharge plan of care and educating the patient and coordinating this with staff. MARINA CARDENAS, CLARIBEL [id number]/[facility] #: [id number] LISA
== END 2018-11-20 15:00 | disposition home or self-care (01) | DRG 344 ==
LOC: ED 15:16 → SSU 19:48
PROVIDERS: ADMIT Internal Medicine; ATTEND Hospitalist
PROC: 02HV33Z Insertion of Infusion Device into Superior Vena Cava, Percutaneous Approach (ICD-10-PCS; principal; 2018-11-19)
DX: M46.26 Osteomyelitis of vertebra, lumbar region (principal); Z68.42 Body mass index [BMI] 45.0-49.9, adult; M46.46 Discitis, unspecified, lumbar region; K21.9 Gastro-esophageal reflux disease without esophagitis; I10 Essential (primary) hypertension; E66.01 Morbid (severe) obesity due to excess calories; F41.9 Anxiety disorder, unspecified; J30.2 Other seasonal allergic rhinitis; Z88.1 Allergy status to other antibiotic agents; Z88.5 Allergy status to narcotic agent; Z88.0 Allergy status to penicillin; Z85.41 Personal history of malignant neoplasm of cervix uteri; Z86.19 Personal history of other infectious and parasitic diseases; Z82.49 Family history of ischemic heart disease and other diseases of the circulatory system; Z87.442 Personal history of urinary calculi; Z80.3 Family history of malignant neoplasm of breast
CPT/HCPCS: 36415; 72132; 80048; 80053; 80202; 81003; 81015; 85025; 86140; 87040; 87086; 99284; A9270-GY; J0696; J0878; J1644; J2270; J2405; J3010; J3370; Q9967

== ENCOUNTER 2019-05-10 20:48 | Emergency (ER) | payer BC, OTHER ==
[2019-05-10 21:06] VITALS: BP 145/83
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
== END 2019-05-10 22:06 | disposition home or self-care (01) ==
LOC: UCCORT 20:48
DX: M54.2 Cervicalgia (principal); M54.6 Pain in thoracic spine; M54.5 Low back pain; V89.2XXA Person injured in unspecified motor-vehicle accident, traffic, initial encounter; Y93.9 Activity, unspecified; Y92.9 Unspecified place or not applicable
CPT/HCPCS: 72050; 72070; 72110; 99211; G0463

== ENCOUNTER 2019-06-28 18:38 | Emergency (ER) | payer BC, OTHER ==
[2019-06-28 18:52] VITALS: BP 156/79
--- NOTE | 2019-06-28 19:10 | UC ---
Abdominal Pain Female HPI - HPI Summary HPI Summary: 48-year-old woman comes in with a chief complaint of left flank and left-sided abdominal pain. It was sudden onset several hours ago. She has a history of kidney stones and this is what it feels like. The patient is a 25 out of 10. She cannot make the pain worse or better. When the pain is really bad she vomits. No fevers. She took some ibuprofen and that's not helping. - History of Current Complaint Chief Complaint: [facility] Stated Complaint: POSSIBLE KIDNEY STONE Time Seen by Provider: 06/28/19 18:55 Hx Last Menstrual Period: 2 months ago; takes meds to control menses Pain Intensity: 10 Allergies/Adverse Reactions: Allergies Allergy/AdvReac Type Severity Reaction Status Date / Time gluten Allergy See Comment Verified 06/28/19 18:44 codeine AdvReac Severe Nausea Verified 06/28/19 18:44 amoxicillin [From Augmentin] AdvReac skin thrush Verified 06/28/19 18:44 clavulanic acid AdvReac skin thrush Verified 06/28/19 18:44 [From Augmentin] PMH/Surg Hx/FS Hx/Imm Hx Previously Healthy: Yes Cardiovascular History: Hypertension GI/ History: Gastroesophageal Reflux, Kidney Stones - Surgical History Surgical History: Yes Surgery Procedure, Year, and Place: Adenoids removed at age 4, Ear tubes as a child. 2018 LAMINECTOMY - Family History Known Family History: Positive: Hypertension Negative: Cardiac Disease, Diabetes - Social History Alcohol Use: Occasionally Substance Use Type: None Smoking Status (MU): Never Smoked Tobacco Have You Smoked in the Last Year: No - Immunization History Most Recent Influenza Vaccination: unknown Most Recent Tetanus Shot: unknown Most Recent Pneumonia Vaccination: unknown Review of Systems All Other Systems Reviewed And Are Negative: Yes Constitutional: Positive: Negative Skin: Positive: Negative Eyes: Positive: Negative ENT: Positive: Negative Respiratory: Positive: Negative Cardiovascular: Positive: Negative Gastrointestinal: Positive: Abdominal Pain, Vomiting Motor: Positive: Negative Neurovascular: Positive: Negative Musculoskeletal: Positive: Negative Neurological: Positive: Negative Psychological: Positive: Negative Is Patient Immunocompromised?: No Physical Exam Triage Information Reviewed: Yes Appearance: Well-Nourished, Pain Distress - MODERATE Vital Signs: Initial Vital Signs Temp 97.5 F 06/28/19 18:44 Pulse 82 06/28/19 18:44 Resp 22 06/28/19 18:44 BP 156/79 06/28/19 18:44 Pulse Ox 100 06/28/19 18:44 Vital Signs Reviewed: Yes Eye Exam: Normal Eyes: Positive: Conjunctiva Clear Neck: Positive: Supple Respiratory: Positive: Lungs clear, Normal breath sounds, No respiratory distress Abdomen Description: Positive: Nontender, Soft. Negative: CVA Tenderness (R), CVA Tenderness (L) Musculoskeletal: Positive: Strength Intact, ROM Intact Neurological: Positive: Alert, Muscle Tone Normal Psychological: Positive: Age Appropriate Behavior Skin Exam: Normal Abd Pain Female Course/Dx - Course Course Of Treatment: Recommended further evaluation and care in the emergency department. Patient went by POV. - Differential Dx/Diagnosis Provider Diagnosis: Left sided abdominal pain, Left flank pain Discharge ED - Sign-Out/Discharge Documenting (check all that apply): Patient Departure All imaging exams completed and their final reports reviewed: No Studies - Discharge Plan Condition: Stable Disposition: HOME-RECOMMEND TO ED Referrals: Delisa Hernandez MD [Primary Care Provider] - Additional Instructions: GO DIRECTLY TO THE EMERGENCY DEPARTMENT FOR FURTHER EVALUATION AND CARE OF YOUR LEFT SIDED ABDOMINAL AND FLANK PAIN. - Billing Disposition and Condition Condition: STABLE Disposition: Home-Recommend to ED
== END 2019-06-28 19:19 | disposition home health service (06) ==
LOC: UCCORT 18:38
DX: R10.9 Unspecified abdominal pain (principal); Z88.0 Allergy status to penicillin; Z88.5 Allergy status to narcotic agent; Z88.8 Allergy status to other drugs, medicaments and biological substances; I10 Essential (primary) hypertension; Z87.442 Personal history of urinary calculi
CPT/HCPCS: 81003; 99212; G0463